=== PATIENT | male | born 1930 | race Caucasian/White ===

== ENCOUNTER 2020-02-04 11:05 | Emergency (ER) | payer OTHER ==
--- NOTE | 2020-02-04 11:51 | EDM.PDOC ---
ED HPI GENERAL MEDICAL PROBLEM - General Chief Complaint: Respiratory Problem Stated Complaint: COVID +/SOB Time Seen by Provider: 02/04/20 11:41 Source of Information: Reports: Patient History Limitations: Reports: No Limitations - History of Present Illness INITIAL COMMENTS - FREE TEXT/NARRATIVE: 89-year-old male presents to the ED apparently brought to the hospital per his s on. They live close to [place]. Patient is here with his visiting [employer]. They reside in [place]. He stated yesterday he started to feel unwell with generalized myalgia and increased shortness of breath with loss of appetite. He would not comment on loss of sense of smell or taste. He is known to have only one lung. 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 He is not on home oxygen therapy. O2 sats in the ED are around 94% on room air. He has a mild minimally productive cough. No nausea vomiting or diarrhea. Did not feel much like eating this morning. Apparently he went to the [facility] yesterday and was diagnosed with COVID positivity. I am unsure of his expectations by coming to the hospital here. He should for the most part try and return to or gone as yet high is at high risk for serious disease related to COVID-19 virus. Patient speaks in tangents and does not always answer questions. He mentioned several times that he wishes to just take a bunch of pills and . Onset: Sudden Onset Date: 02/03/20 (Started to feel unwell yesterday with fever generalized myalgia and increased dyspnea.) Duration: Hour(s):, Constant Location: Reports: Chest (Dyspnea with occasional audible wheezing.) Quality: Reports: Other Severity: Moderate (Low-grade fever generalized myalgia.) Improves with: Reports: Rest (Is on exertion.) Worsens with: Reports: Movement Context: Reports: Sick Contact. Denies: Activity, Exercise, Lifting, Trauma Associated Symptoms: Reports: Cough, Fever/Chills, Loss of Appetite, Malaise, Shortness of Breath (Worse than normal. Patient has only his right lung previous left pneumonectomy in 1963 for cancer.), Weakness. 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) (None.) - Related Data Allergies Allergy/AdvReac Type Severity Reaction Status Date / Time Penicillins Allergy Cannot Verified 02/04/20 11:37 Remember Sulfa (Sulfonamide Allergy Cannot Verified 02/04/20 11:37 Antibiotics) Remember Home Meds: Home Meds Doxycycline [Vibra-Tabs] 100 mg PO Q12HR #20 tab 02/04/20 [Rx] Furosemide [Lasix] 20 mg PO DAILY 02/04/20 [History] PARoxetine HCL [Paroxetine HCl] 40 mg PO DAILY 02/04/20 [History] dexAMETHasone [Dexamethasone] 3 mg PO BID #10 tablet 02/04/20 [Rx] lisinopriL [Lisinopril] 10 mg PO DAILY 02/04/20 [History] metFORMIN HCl [Metformin HCl ER] 1,000 mg PO BID 02/04/20 [History] Past Medical History Cardiovascular History: Reports: Hypertension, SOB on Exertion Respiratory History: Reports: Other (See Below) (Chronic hypoxia as he only has his right lung. Left lung is been removed due to cancer in 1963.) Musculoskeletal History: Reports: Back Pain, Chronic, Osteoarthritis, Osteoporosis, Other (See Below) (Right total knee replacement) Psychiatric History: Reports: Depression (Chronic major depression. Reports many times during our interview that he is ready to ) Endocrine/Metabolic History: Reports: Diabetes, Type II (Controlled with diet and metformin.) Social & Family History - Living Situation & Occupation Living situation: Reports: Occupation: Retired Social History Comment: Visiting family members up by [place]. He resides in [place] with his . ED ROS GENERAL - Review of Systems Review Of Systems: See Below Constitutional: Reports: Fever, Malaise, Weakness, Fatigue, Decreased Appetite HEENT: Reports: Glasses Respiratory: Reports: Shortness of Breath, Cough. Denies: Wheezing, Pleuritic Chest Pain, Sputum, Hemoptysis Cardiovascular: Reports: Blood Pressure Problem, Dyspnea on Exertion (Chronic severe edema both lower extremities. Left worse than the right. Medically as he is only his right lung.), Edema. Denies: Chest Pain, Claudication, Lightheadedness, Orthopnea (Lisinopril daily for blood pressure), Palpitations Endocrine: Reports: Fatigue GI/Abdominal: Reports: Constipation (Occasional problems with constipation.), Decreased Appetite. Denies: Nausea, Vomiting : Reports: Frequency, Other (Cerri usually x2 or 3. Known BPH.) Musculoskeletal: Reports: Shoulder Pain (Previous surgery on right shoulder and right total knee replacement), Back Pain, Joint Pain (Both knees both hips neck and shoulders.) Skin: Reports: No Symptoms Neurological: Reports: Dizziness, Difficulty Walking (Due to weakness), Weakness. Denies: Confusion, Headache, Syncope (Patient will dizzy spells which I interpreted as a mild vertigo symptoms.) Psychiatric: Reports: No Symptoms Hematologic/Lymphatic: Reports: No Symptoms Immunologic: Reports: No Symptoms ED EXAM, GENERAL - Physical Exam Exam: See Below Exam Limited By: No Limitations (Patient speaks in tangents and does not always answer your questions. I question whether he has a bit of a hearing loss or this is just his normal personality.) General Appearance: Alert, WD/WN, No Apparent Distress, Other (Vital signs show that he is febrile and he does feel warm palpation. Temperature is recorded at 37.6. Heart rate is 98 respiratory is 20 with O2 sats of 9495% on room air. BP slightly elevated at 155 111.) Eye Exam: Bilateral Eye: Normal Inspection (No scleral icterus or blepharal pallor.), PERRL Ears: Normal TMs Throat/Mouth: Normal Inspection, Normal Oropharynx, Other Head: Atraumatic, Normocephalic Neck: Normal Inspection, Limited Range of Motion (Hepatus on lateral rotation. Loss of 10 degrees flexion laterally and 10 degrees flexion.), Tender Lateral. No: Lymphadenopathy (L), Lymphadenopathy (R) Respiratory/Chest: No Accessory Muscle Use, Respiratory Distress (Tachypneic at rest at 20/min with O2 sats of 90-90 4 to 95%.), Decreased Breath Sounds (There is absence of breath sounds in the left lung field due to previous left pneumonectomy. I feel there is a few crackles at the left lung base. Is decreased air entry as well to the lower lung field on the right side by about 20%.). No: Rhonchi, Wheezing, Stridor Cardiovascular: Regular Rate, Rhythm, No Gallop, No Murmur, No Rub. No: Normal Peripheral Pulses (No pulses could be felt below the femorals due to 4+ pitting edema both lower extremities.), No Edema Peripheral Pulses: 0: Posterior Tibial (L), Posterior Tibial (R), Dorsalis Pedis (L), Dorsalis Pedis (R), 2+: Carotid (L), Carotid (R) GI/Abdominal: Normal Bowel Sounds, Soft, Non-Tender, No Organomegaly, No Mass, Pelvis Stable, Other (Moderately obese.). No: Guarding, Rigid, Rebound, Tender Back Exam: Normal Inspection, Decreased Range of Motion (He has difficulty sitting up on his own volition and required help.) Extremities: Pedal Edema (Plus pitting edema both lower extremities), Other (He has a well-healed scar midline of his right knee from total knee replacement he has a area of erythema approximately 2.5 cm in diameter in the mid patella which he states has blistered periodically this has been present ever since he had total knee replacement. He has surgical scars right shoulder from rotator cuff repair. There is evidence of arthritic change in left knee and both hips have very limited internal and external rotation combined with arthritis.) Neurological: Alert, Oriented, CN II-XII Intact, Normal Cognition Psychiatric: Other (Patient speaks frequently of just taking some pills and ending his life. He states that this is legal in [place] gone.) Skin Exam: Warm, Dry, Intact, Normal Color, No Rash Course - Vital Signs Last Recorded V/S: Last Vital Signs Temp 37.1 C 02/04/20 14:24 Pulse 98 02/04/20 11:37 Resp 24 H 02/04/20 14:24 BP 155/111 H 02/04/20 11:37 Pulse Ox 96 02/04/20 14:24 - Orders/Labs/Meds Orders: Active Orders 24 hr Category Date Time Status CULTURE BLOOD [BC] Stat Lab 02/04/20 12:35 Received CULTURE BLOOD [BC] Stat Lab 02/04/20 13:00 Received CULTURE URINE [RM] Stat Lab 02/04/20 12:00 Received Blood Culture x2 Reflex Set [OM.PC] Stat Oth 02/04/20 11:58 Ordered Labs: Laboratory Tests 02/04/20 02/04/20 02/04/20 Range/Units 12:00 12:35 12:35 WBC 5.23 (4.23-9.07) K/mm3 RBC 4.63 (4.63-6.08) M/mm3 Hgb 13.2 L (13.7-17.5) gm/dl Hct 41.9 (40.1-51.0) % MCV 90.5 (79.0-92.2) fl MCH 28.5 (25.7-32.2) pg MCHC 31.5 L (32.2-35.5) g/dl RDW Std Deviation 50.6 H (35.1-43.9) fL Plt Count 176 (163-337) K/mm3 MPV 9.8 (9.4-12.3) fl Neut % (Auto) 62.7 (34.0-67.9) % Lymph % (Auto) 15.7 L (21.8-53.1) % [place] % (Auto) 14.3 H (5.3-12.2) % Eos % (Auto) 5.0 (0.8-7.0) Baso % (Auto) 0.6 (0.1-1.2) % Neut # (Auto) 3.28 (1.78-5.38) K/mm3 Lymph # (Auto) 0.82 L (1.32-3.57) K/mm3 [place] # (Auto) 0.75 (0.30-0.82) K/mm3 Eos # (Auto) 0.26 (0.04-0.54) K/mm3 Baso # (Auto) 0.03 (0.01-0.08) K/mm3 ESR (0-15) mm/hr PT 11.0 (9.7-11.7) SECONDS INR 1.03 D-Dimer, Quantitative (0.19-0.50) mg/L Sodium (136-145) mEq/L Potassium (3.5-5.1) mEq/L Chloride (98-107) mEq/L Carbon Dioxide (21-32) mEq/L Anion Gap (5-15) BUN (7-18) mg/dL Creatinine (0.7-1.3) mg/dL Est Cr Clr Drug Dosing mL/min Estimated GFR (MDRD) (>60) mL/min BUN/Creatinine Ratio (14-18) Glucose (83-115) mg/dL Calcium (8.5-10.1) mg/dL Magnesium (1.8-2.4) mg/dl Ferritin (26-388) ng/ml Total Bilirubin (0.2-1.0) mg/dL AST (15-37) U/L ALT (16-63) U/L Alkaline Phosphatase (46-116) U/L Lactate Dehydrogenase (85-227) U/L CK-MB (CK-2) (0-3.6) ng/ml Troponin I (0.00-0.056) ng/mL NT-Pro-B Natriuret Pep (0-450) pg/mL Total Protein (6.4-8.2) g/dl Albumin (3.4-5.0) g/dl Globulin gm/dL Albumin/Globulin Ratio (1-2) Urine Color Yellow (Yellow) Urine Appearance Clear (Clear) Urine pH 5.5 (5.0-8.0) Ur Specific [place] 1.015 (1.005-1.030) Urine Protein Negative (Negative) Urine Glucose (UA) Negative (Negative) Urine Ketones Negative (Negative) Urine Occult Blood Negative (Negative) Urine Nitrite Positive H (Negative) Urine Bilirubin Negative (Negative) Urine Urobilinogen 0.2 (0.2-1.0) Ur Leukocyte Esterase Trace H (Negative) U Hyaline Cast (Auto) 0-5 (0-5) /lpf Urine RBC 0-5 (0-5) /hpf Urine WBC 5-10 H (0-5) /hpf Ur Epithelial Cells Not seen (0-5) /hpf Urine Bacteria Many H (FEW) /hpf Urine Mucus Not Reportable SARS-CoV-2 RNA (DAISY) (NEGATIVE) 02/04/20 02/04/20 02/04/20 Range/Units 12:35 12:35 12:35 WBC (4.23-9.07) K/mm3 RBC (4.63-6.08) M/mm3 Hgb (13.7-17.5) gm/dl Hct (40.1-51.0) % MCV (79.0-92.2) fl MCH (25.7-32.2) pg MCHC (32.2-35.5) g/dl RDW Std Deviation (35.1-43.9) fL Plt Count (163-337) K/mm3 MPV (9.4-12.3) fl Neut % (Auto) (34.0-67.9) % Lymph % (Auto) (21.8-53.1) % [place] % (Auto) (5.3-12.2) % Eos % (Auto) (0.8-7.0) Baso % (Auto) (0.1-1.2) % Neut # (Auto) (1.78-5.38) K/mm3 Lymph # (Auto) (1.32-3.57) K/mm3 [place] # (Auto) (0.30-0.82) K/mm3 Eos # (Auto) (0.04-0.54) K/mm3 Baso # (Auto) (0.01-0.08) K/mm3 ESR (0-15) mm/hr PT (9.7-11.7) SECONDS INR D-Dimer, Quantitative 1.10 H (0.19-0.50) mg/L Sodium 138 (136-145) mEq/L Potassium 3.5 (3.5-5.1) mEq/L Chloride 99 (98-107) mEq/L Carbon Dioxide 29 (21-32) mEq/L Anion Gap 13.5 (5-15) BUN 15 (7-18) mg/dL Creatinine 1.1 (0.7-1.3) mg/dL Est Cr Clr Drug Dosing 47.01 mL/min Estimated GFR (MDRD) > 60 (>60) mL/min BUN/Creatinine Ratio 13.6 L (14-18) Glucose 231 H (83-115) mg/dL Calcium 9.5 (8.5-10.1) mg/dL Magnesium 1.5 L (1.8-2.4) mg/dl Ferritin 1303 H (26-388) ng/ml Total Bilirubin 0.6 (0.2-1.0) mg/dL AST 50 H (15-37) U/L ALT 47 (16-63) U/L Alkaline Phosphatase 53 (46-116) U/L Lactate Dehydrogenase 184 (85-227) U/L CK-MB (CK-2) 1.5 (0-3.6) ng/ml Troponin I < 0.017 (0.00-0.056) ng/mL NT-Pro-B Natriuret Pep (0-450) pg/mL Total Protein 7.2 (6.4-8.2) g/dl Albumin 3.4 (3.4-5.0) g/dl Globulin 3.8 gm/dL Albumin/Globulin Ratio 0.9 L (1-2) Urine Color (Yellow) Urine Appearance (Clear) Urine pH (5.0-8.0) Ur Specific [place] (1.005-1.030) Urine Protein (Negative) Urine Glucose (UA) (Negative) Urine Ketones (Negative) Urine Occult Blood (Negative) Urine Nitrite (Negative) Urine Bilirubin (Negative) Urine Urobilinogen (0.2-1.0) Ur Leukocyte Esterase (Negative) U Hyaline Cast (Auto) (0-5) /lpf Urine RBC (0-5) /hpf Urine WBC (0-5) /hpf Ur Epithelial Cells (0-5) /hpf Urine Bacteria (FEW) /hpf Urine Mucus SARS-CoV-2 RNA (DAISY) (NEGATIVE) 02/04/20 02/04/20 02/04/20 Range/Units 12:35 12:35 12:50 WBC (4.23-9.07) K/mm3 RBC (4.63-6.08) M/mm3 Hgb (13.7-17.5) gm/dl Hct (40.1-51.0) % MCV (79.0-92.2) fl MCH (25.7-32.2) pg MCHC (32.2-35.5) g/dl RDW Std Deviation (35.1-43.9) fL Plt Count (163-337) K/mm3 MPV (9.4-12.3) fl Neut % (Auto) (34.0-67.9) % Lymph % (Auto) (21.8-53.1) % [place] % (Auto) (5.3-12.2) % Eos % (Auto) (0.8-7.0) Baso % (Auto) (0.1-1.2) % Neut # (Auto) (1.78-5.38) K/mm3 Lymph # (Auto) (1.32-3.57) K/mm3 [place] # (Auto) (0.30-0.82) K/mm3 Eos # (Auto) (0.04-0.54) K/mm3 Baso # (Auto) (0.01-0.08) K/mm3 ESR 30 H (0-15) mm/hr PT (9.7-11.7) SECONDS INR D-Dimer, Quantitative (0.19-0.50) mg/L Sodium (136-145) mEq/L Potassium (3.5-5.1) mEq/L Chloride (98-107) mEq/L Carbon Dioxide (21-32) mEq/L Anion Gap (5-15) BUN (7-18) mg/dL Creatinine (0.7-1.3) mg/dL Est Cr Clr Drug Dosing mL/min Estimated GFR (MDRD) (>60) mL/min BUN/Creatinine Ratio (14-18) Glucose (83-115) mg/dL Calcium (8.5-10.1) mg/dL Magnesium (1.8-2.4) mg/dl Ferritin (26-388) ng/ml Total Bilirubin (0.2-1.0) mg/dL AST (15-37) U/L ALT (16-63) U/L Alkaline Phosphatase (46-116) U/L Lactate Dehydrogenase (85-227) U/L CK-MB (CK-2) (0-3.6) ng/ml Troponin I (0.00-0.056) ng/mL NT-Pro-B Natriuret Pep 170 (0-450) pg/mL Total Protein (6.4-8.2) g/dl Albumin (3.4-5.0) g/dl Globulin gm/dL Albumin/Globulin Ratio (1-2) Urine Color (Yellow) Urine Appearance (Clear) Urine pH (5.0-8.0) Ur Specific [place] (1.005-1.030) Urine Protein (Negative) Urine Glucose (UA) (Negative) Urine Ketones (Negative) Urine Occult Blood (Negative) Urine Nitrite (Negative) Urine Bilirubin (Negative) Urine Urobilinogen (0.2-1.0) Ur Leukocyte Esterase (Negative) U Hyaline Cast (Auto) (0-5) /lpf Urine RBC (0-5) /hpf Urine WBC (0-5) /hpf Ur Epithelial Cells (0-5) /hpf Urine Bacteria (FEW) /hpf Urine Mucus SARS-CoV-2 RNA (DAISY) Positive H (NEGATIVE) Meds: Medications Discontinued Medications Generic Name Dose Route Start Last Admin Trade Name Freq PRN Reason Stop Dose Admin Acetaminophen 650 mg 02/04/20 11:59 02/04/20 12:44 Tylenol PO 02/04/20 12:00 650 mg NOW STA Administration Sodium Chloride 1,000 mls @ 100 mls/hr 02/04/20 12:00 02/04/20 12:45 Normal Saline IV 100 mls/hr ASDIRECTED CHARLES Administration - Radiology Interpretation Free Text/Narrative:: 89-year-old male presents to the ED apparently brought here by his son from a [place]. He started to feel unwell yesterday by this he means a low-grade fever generalized myalgia slight cough decreased appetite and was seen at the [facility] emergency department yesterday and diagnosed with COVID positivity. Patient has multiple comorbidities including only one lung with left lung being removed at 1963 because of cancer. History of right sided heart failure with chronic edema dependent edema up to his knees bilaterally. Type II diabetic controlled with metformin . Obesity. Age. We will complete a COVID work-up here and strategize a treatment plan for him. At present our hospitals on diversion. There are very limited beds in the [facility] due to COVID illness. - Re-Assessments/Exams Free Text/Narrative Re-Assessment/Exam: 02/04/20 13:10 Urinalysis shows nitrate positive trace leukocyte esterase however 5-10 WBCs per high-power field and many bacteria appreciated. Culture will be ordered. Portable chest x-ray reveals absence of the left lung. Appears to be scar tissue at the base of the left lung. Left hemidiaphragm is mildly elevated. The right lung appears clear. Cardiac silhouette upper limits of normal in size. Slightly tortuous thoracic aorta evident. 02/04/20 13:53 White count is 5.23 with a auto differential of 63% neutrophils. Hemoglobin is 13.2 with hematocrit of 41.9. Platelet count is 176,000. PT is 11.0 with an INR of 1.03. D-dimer is minimally elevated at 1.10. Sodium 138 with a potassium of 3.5. Chloride 99 with a bicarb of 29. Anion gap is 13.5. BUN is 15 with a creatinine of 1.1. GFR is greater than 60. Glucose is elevated to 31 but he is a known diabetic. Calcium is 9.5 magnesium is slightly low at 1.5. Bilirubin is 0.6 AST slightly elevated at 50 ALT normal at 47 alk phos stays normal at 53. LDH normal at 184. CK-MB fraction 1.5 troponin I is less than 0.017. BNP is 170 total protein 7.2 with an albumin fraction of 3.4. COVID-19 study is positive. 02/04/20 14:20: Spoke to the patient's son-in-law who has a grasp of the situation as to how [id number] contracted COVID. Due to his health risk it is my opinion that he should travel back to [place] as soon as possible as his condition is likely to deteriorate and he is in need of aggressive management for COVID illness. At this point time if he does not seem to understand the gravity of the situation but continues to speak intermittently of wanting to . Patient will be discharged in the care of his son-in-law and the plan is to take him and his back to [place] with their daughter who cares for them as soon as possible. They live close to [place] and he is to follow-up with his physician as soon as he back home. Apparently the and the daughter were tested for COVID and are negative at this time. Plan will be to place him on 3 mg of dexamethasone twice a day orally for 5 days. This will elevate his blood sugars while he is on the medication. However it is felt to be worth the risk as the COVID virus will cause tremendous inflammation in the next 3 to 5 days. Departure - Departure Time of Disposition: 14:09 Disposition: Home, Self-Care 01 Condition: Fair Clinical Impression: COVID-19 determined by clinical diagnostic criteria, History of pneumonectomy, Type 2 diabetes mellitus - Discharge Information *PRESCRIPTION DRUG MONITORING PROGRAM REVIEWED*: Not Applicable *COPY OF PRESCRIPTION DRUG MONITORING REPORT IN PATIENT SERJIO: Not Applicable Prescriptions: dexAMETHasone [Dexamethasone] 3 mg PO BID #10 tablet Doxycycline [Vibra-Tabs] 100 mg PO Q12HR #20 tab Instructions: COVID-19 Referrals: PCP,Not In Area [Primary Care Provider] - Forms: ED Department Discharge Additional Instructions: Evaluation in the emergency room this morning due to starting to feel ill last evening with known exposure to COVID-19 virus last Tuesday, January 29. COVID testing at [facility] last night was positive and it is positive here with a 1 hour test which is much more reliable and confirms that you are in the early stages of viral illness that primarily affects your lungs. You are at high risk of becoming much sicker over the next 3 to 5 days with increased shortness of breath due to the fact that she only have one lung. The remainder of your blood test revealed no signs of heart attack or other serious illness other than a urinary tract infection which is most likely from prostate gland infection. I would strongly suggest that you return back to or gone so that you are closer to your physicians and your local hospital as you are likely going to need to be admitted to hospital for treatment in the next 3 to 5 days. In the meantime you need to take antibiotic doxycycline 100 mg twice daily for the next 10 days to clear up prior urinary tract infection and we will start you on low- dose dexamethasone 3 mg twice daily to hopefully reduce inflammation and prevent further complications from COVID-19 illness. This medication will increase your blood sugars while you are on it but they will return to normal after you are done. Suggest 3 mg of dexamethasone twice daily for 5 days Sepsis Event Note (ED) - Focused Exam Vital Signs: Vital Signs Temp Pulse Resp BP Pulse Ox 02/04/20 14:24 37.1 C 24 H 96 02/04/20 11:37 37.6 C 98 20 155/111 H 95 - My Orders Last 24 Hours: My Active Orders 02/04/20 11:58 Blood Culture x2 Reflex Set [OM.PC] Stat 02/04/20 12:00 CULTURE URINE [RM] Stat 02/04/20 12:35 CULTURE BLOOD [BC] Stat 02/04/20 13:00 CULTURE BLOOD [BC] Stat - Assessment/Plan Last 24 Hours: My Active Orders 02/04/20 11:58 Blood Culture x2 Reflex Set [OM.PC] Stat 02/04/20 12:00 CULTURE URINE [RM] Stat 02/04/20 12:35 CULTURE BLOOD [BC] Stat 02/04/20 13:00 CULTURE BLOOD [BC] Stat
[2020-02-04] MEDS ORDERED: Acetaminophen 325 MG Tab PO STA (11:59)
[2020-02-04] MEDS ORDERED: Sodium Chloride 0.9% 1,000 ML IV SCH (12:00)
--- NOTE | 2020-02-04 16:31 | CR ---
Chest: Portable view of the chest was obtained. Comparison: No previous chest imaging is available. Slight atelectasis or scarring is seen within the left base. Lungs otherwise are clear. Heart size appears within normal limits for portable technique. Bony structures are grossly intact. Impression: 1. Slight atelectasis or scarring within the left base. 2. Nothing acute is otherwise is seen on portable chest x-ray. Diagnostic code #2 Study was dictated in MDT
== END 2020-02-04 14:30 | disposition home or self-care (01) ==
LOC: JD.ED 11:05
DX: U07.1 COVID-19 (principal); E11.9 Type 2 diabetes mellitus without complications; F32.9 Major depressive disorder, single episode, unspecified; I10 Essential (primary) hypertension; Z90.2 Acquired absence of lung [part of]; Z88.0 Allergy status to penicillin; Z88.2 Allergy status to sulfonamides; Z79.899 Other long term (current) drug therapy
CPT/HCPCS: 36415; 71045; 80053; 81001; 82553; 82728; 83615; 83735; 83880; 84484; 85025; 85379; 85610; 85652; 87040; 87086; 87088; 87186; 87635; 93005; 96360; 96361; 99285; A9270; J7030; 93010; 99283; U0002